=== PATIENT | male | born 1970 | race Caucasian/White ===

== ENCOUNTER 2024-01-17 17:58 | Outpatient (CLI) | payer OTHER, SELFPAY | END 2024-01-17 17:59 | disposition home or self-care (01) | LOC: FBOREF 17:59 | PROVIDERS: PCP Family Medicine; Visit Provider Family Medicine | DX: E11.9 Type 2 diabetes mellitus without complications (principal); E78.2 Mixed hyperlipidemia; Z79.4 Long term (current) use of insulin | CPT/HCPCS: 80048; 80061; 84460 ==

== ENCOUNTER 2024-06-03 12:19 | Outpatient (CLI) | payer OTHER, SELFPAY | END 2024-06-03 12:20 | disposition home or self-care (01) | PROVIDERS: PCP Family Medicine; Visit Provider Family Medicine | DX: E11.9 Type 2 diabetes mellitus without complications (principal); E78.2 Mixed hyperlipidemia; I10 Essential (primary) hypertension; Z79.4 Long term (current) use of insulin | CPT/HCPCS: 80048; 80061 ==

== ENCOUNTER 2025-07-08 08:54 | Outpatient (CLI) | payer OTHER, SELFPAY | END 2025-07-08 08:55 | disposition home or self-care (01) | PROVIDERS: PCP Family Medicine; Visit Provider Family Medicine | DX: E11.9 Type 2 diabetes mellitus without complications (principal); Z79.4 Long term (current) use of insulin | CPT/HCPCS: 82043; 82570 ==